=== PATIENT | male | born 1940 | race Caucasian/White ===

== ENCOUNTER 2022-10-17 15:15 | Inpatient (IN) ==
--- NOTE | 2022-10-17 15:54 | Emergency Department Note ---
SOB HPI General Chief Complaint: Shortness of Breath/Dyspnea Stated Complaint: SOB Time Seen by Provider: 10/17/22 15:33 Source: patient Mode of arrival: ambulatory Limitations: no limitations History of Present Illness HPI Narrative: 81-year-old male with history of CAD, ICM with EF 45 to 50%, chronic left bundle branch block, [employer] with BiV pacing, paroxysmal A. fib on chronic anticoagulation, COPD with 2 L oxygen requirement at night, RAFAEL, chronic right hemidiaphragm, hypothyroidism, and BPH presents to the ER from minor care with shortness of breath, weakness, and hypoxia. O2 saturations dipped into the high 70s on room air. Patient states that he started feeling ill on Saturday. This was preceded by his who had been sick for a week prior. He complains of congestion, cough, and general malaise. He has had poor oral intake. He does note he is gained 2 pounds in the last week unintentionally. He does have lower extremity edema and takes Lasix as needed as needed for this. He notes that he does not routinely take it and has not taken any lately. He denies chest pain. Denies nausea or vomiting. Denies abdominal pain, but does complain of some abdominal fullness. He is also had difficulty urinating with minimal output. Related Data Home Medications Medication Instructions Recorded Confirmed losartan 25 mg tablet 25 mg PO QDAY 02/28/16 10/17/22 metoprolol succinate 50 mg 50 mg PO QDAY 08/20/17 10/17/22 tablet,extended release 24 hr omega-3 fatty acids 1,000 mg 2,000 mg PO QDAY 06/23/20 10/17/22 capsule (Fish Oil Concentrate) apixaban 2.5 mg tablet (Eliquis) mg PO 02/05/22 10/17/22 Previous Rx's Medication Instructions Recorded furosemide 40 mg tablet 40 mg PO QAM Edema #30 tabs 12/14/20 Portable Oxygen Concentrator See Rx Instructions .Route 03/14/21 .COMPLEX #1 unit Oxygen See Rx Instructions intranasal QHS 03/21/21 #1 unit tamsulosin 0.4 mg capsule 0.8 mg PO QDAY #90 caps 04/20/22 fluticasone furoate 100 1 inh inhalation Q24H 90 days #180 05/08/22 mcg-vilanterol 25 mcg/dose ea inhalation powder (Breo Ellipta) atorvastatin 40 mg tablet (Lipitor) 40 mg PO .QOD #45 tabs 05/29/22 C-Pap and associated supplies #1 ea 07/04/22 ipratropium 0.5 mg-albuterol 3 mg 3 ml inhalation BID #180 mL 07/11/22 (2.5 mg base)/3 mL nebulization soln levothyroxine 100 mcg tablet 100 mcg PO QDAY #90 tabs 07/31/22 (Synthroid) finasteride 5 mg tablet 5 mg PO QDAY #90 tabs 08/01/22 BiPap Mask Headgear #1 ea 09/21/22 Allergies Allergy/AdvReac Type Severity Reaction Status Date / Time vancomycin Allergy Intermediate Hives, Verified 10/17/22 15:22 itching Review of Systems ROS ROS Narrative: Narrative: All systems ED: reviewed and negative except as stated. [facility] Narrative Patient History Narrative: Narrative: Medical/Surgical/Family History All Active Problems (Updated 10/17/22 @ 19:42 by Carolee Leon PA-C) Community acquired pneumonia (Acute) Acute exacerbation of CHF (congestive heart failure) (Acute) BPH with obstruction/lower urinary tract symptoms (Acute) History of bladder cancer (Acute) Cellulitis of toe of right foot (Acute) History of tobacco use (Chronic) Hypothyroidism (acquired) (Chronic) BPH (benign prostatic hyperplasia) (Chronic) COPD (chronic obstructive pulmonary disease) (Chronic) Hypertension (Chronic) Diaphragmatic paralysis (Chronic) Congestive heart failure (Chronic) Hyperlipidemia (Chronic) Chronic kidney disease, stage III (moderate) (Chronic) RAFAEL (obstructive sleep apnea) (Chronic) Osteoarthritis (Acute) RAFAEL treated with BiPAP (Chronic) Hx of bladder cancer (Acute) Hx of renal calculi (Acute) Medicare annual wellness visit, initial (Acute) Annual physical exam (Acute) Anemia (Acute) Anemia (Acute) Renal stones (Acute) Bladder cancer (Acute) BPH w urinary obs/LUTS (Acute) Elevated PSA (Acute) Bilateral lower extremity edema (Acute) Bladder diverticulum (Acute) Urinary retention (Acute) Elevated PSA (Acute) Hypoxia (Acute) Incomplete bladder emptying (Acute) Acute UTI (Acute) Tinea (Acute) Pre-procedural examination (Acute) Medical History Anemia Anemia Annual physical exam Arthritis Bilateral lower extremity edema Bladder diverticulum BPH (benign prostatic hyperplasia) Chronic kidney disease, stage III (moderate) Congestive heart failure Clinically euvolumic, follows with Cardiology.Dr Cross Continuous positive airway pressure dependent COPD (chronic obstructive pulmonary disease) oxygen 2 L at night, Duonebs 4 times a day Diaphragmatic paralysis Right side, phrnenic nerve paralysis Elevated PSA History of tobacco use Smoked for 30 years, quit 25 years ago. Hyperlipidemia Hypertension Hypothyroidism (acquired) on synthroid 100mcg, tsh wnl, continue same, clinically euthyroid. Hypoxia Medicare annual wellness visit, initial RAFAEL treated with BiPAP Rheumatic fever While in grade school Sleep apnea Tinea Urinary retention Surgical History History of colonoscopy History of elbow surgery History of eye surgery History of knee replacement History of knee surgery Knee scope - x2 History of shoulder surgery History of toe surgery 3 toes straightened History of tonsillectomy History of tonsillectomy Family History Father Family history of malignant neoplasm 2 sons Mother Family history of malignant neoplasm Brother Cerebrovascular accident Other Kidney stone Social History Smoking Status: Former smoker Alcohol Intake Frequency: 0-2 drinks per day Substance Use: does not use Exam Narrative Narrative: General: AOx3, NAD, nontoxic appearing. Pleasant and conversant. HEENT: PERRL, EOMI, normocephalic. Moist mucous membranes. Normal facies and normal dentition. Chest: Symmetric, no pain to palpation Respiratory: Lungs clear to auscultation bilaterally. Super clavicular retractions with breathing. Talking in 2-3 word sentences. Heart: Regular rate and rhythm, BiV paced. No murmurs/clicks/rubs. Abdomen: Obese, non-tender, Non distended Extremities: Warm and well perfused. Trace pitting edema bilaterally. DP 2+ bilaterally. No venous stasis. Neuro: No focal deficits. Cranial nerves II-XII grossly normal. Skin: Warm dry, no rashes or lesions, no cyanosis. Psych: Normal mood and affect Heme/Lymph: No abnormal bruising General Limitations: no limitations Course Course Course Narrative: 81-year-old male presents for acute hypoxia and shortness of breath Reevaluation(s) Reevaluation #1: Basic labs, BnP, troponin, chest x-ray Check influenza and COVID swabs Reevaluation #2: BNP is mildly elevated at 773. CBC without leukocytosis. Creatinine is 1.8 up from 1.4 on 07/17/2022. Chronic anemia stable with an H&H of 12.1/38.2 Chest x-ray shows right hemidiaphragm, cardiomegaly, pulmonary vascular congestion, and mid right basilar density consistent with pneumonia or atelectasis. Influenza and COVID are negative Reevaluation #3: Patient is requiring 3 L to keep his sats above 92%. He is less tachypneic. He received 40 mg of IV Lasix and has only urinated 225 cc. Patient will need admission for ongoing diuresis and antibiotics. Vital Signs Vital signs: Vital Signs Temperature 97.7 F 10/17/22 15:17 Pulse Rate 109 H 10/17/22 15:17 Respiratory Rate 20 10/17/22 15:17 Blood Pressure 154/70 10/17/22 15:17 Pulse Oximetry (%) 79 L 10/17/22 15:17 Oxygen Delivery Method 10/17/22 15:17 Temperature 97.7 F 10/17/22 15:17 Pulse Rate 90 10/17/22 19:02 Respiratory Rate 32 H 10/17/22 19:15 Blood Pressure 131/76 10/17/22 19:02 Pulse Oximetry (%) 91 10/17/22 19:02 Oxygen Delivery Method 10/17/22 18:02 Oxygen Flow Rate (L/min) 3 10/17/22 18:02 [facility] Narrative Medical decision making narrative: Hypoxia CHF exacerbation Right lower lobe pneumonia Renal insufficiency Patient received 1 g IV ceftriaxone and 500 mg of oral azithromycin. He received 400 mg of IV Lasix in the ER. He is still requiring 2 to 3 L to keep his oxygen sats above 90%. Patient would benefit from admission and stabilization and I have reached out to hospitalist for admission. Curb 65 score is 3 severe risk. The patient been accepted for admission. Lab Data Result diagrams: 10/17/22 15:56 Labs: Lab Results 10/17/22 10/17/22 10/17/22 Range/Units 15:55 15:56 15:58 WBC 5.7 (4.5-11.0) K/mcL RBC 4.02 L (4.63-6.08) M/mcL Hgb 12.1 L (13.7-17.5) g/dL Hct 38.2 L (40.1-51.0) % POC Hct 39.0 L (41-55) MCV 95.0 (80.0-100.0) fL MCH 30.1 (26.0-34.0) pg MCHC 31.7 (31.0-36.0) g/dL RDW 12.6 (11.5-14.5) % Plt Count 159 (140-440) K/mcL MPV 11.2 (8.8-12.5) fL Immature Gran % (Auto) 0.5 (0.0-0.5) % Neut % (Auto) 71.1 (38.0-78.0) % Lymph % (Auto) 14.7 L (15.5-49.0) % [place] % (Auto) 12.4 H (1.0-12.0) % Eos % (Auto) 1.0 (0.0-7.0) % Baso % (Auto) 0.3 (0.0-2.0) % Lymph # (Auto) 0.84 L (1.50-4.80) K/mcL [place] # (Auto) 0.71 (0.10-0.90) K/mcL Eos # (Auto) 0.06 (0.00-0.70) K/mcL Baso # (Auto) 0.02 (0.00-0.30) K/mcL Immature Gran # 0.03 (0.00-0.05) K/mcl Absolute Neutrophils 4.07 (1.80-8.00) K/mcL POC Sodium 140 (133-145) POC Potassium 4.2 (3.3-5.1) POC Chloride 99 (96-108) POC Total CO2 32.0 H (22-30) POC BUN 32 H (6-20) POC Creatinine 1.8 H (0.6-1.2) POC Glucose 107 H (70-105) POC WB Ioniz Calcium 1.11 L (1.16-1.32) NT-Pro-B Natriuret Pep 773.9 H (<450.0) pg/mL POC Troponin I (0.00-0.08) 10/17/22 Range/Units 17:43 WBC (4.5-11.0) K/mcL RBC (4.63-6.08) M/mcL Hgb (13.7-17.5) g/dL Hct (40.1-51.0) % POC Hct (41-55) MCV (80.0-100.0) fL MCH (26.0-34.0) pg MCHC (31.0-36.0) g/dL RDW (11.5-14.5) % Plt Count (140-440) K/mcL MPV (8.8-12.5) fL Immature Gran % (Auto) (0.0-0.5) % Neut % (Auto) (38.0-78.0) % Lymph % (Auto) (15.5-49.0) % [place] % (Auto) (1.0-12.0) % Eos % (Auto) (0.0-7.0) % Baso % (Auto) (0.0-2.0) % Lymph # (Auto) (1.50-4.80) K/mcL [place] # (Auto) (0.10-0.90) K/mcL Eos # (Auto) (0.00-0.70) K/mcL Baso # (Auto) (0.00-0.30) K/mcL Immature Gran # (0.00-0.05) K/mcl Absolute Neutrophils (1.80-8.00) K/mcL POC Sodium (133-145) POC Potassium (3.3-5.1) POC Chloride (96-108) POC Total CO2 (22-30) POC BUN (6-20) POC Creatinine (0.6-1.2) POC Glucose (70-105) POC WB Ioniz Calcium (1.16-1.32) NT-Pro-B Natriuret Pep (<450.0) pg/mL POC Troponin I 0.02 (0.00-0.08) ED POC Tests ED POC Tests: ARIE - Influenza A Negative ARIE - Influenza B Negative ARIE - SARS Antigen Negative Discharge Plan Patient/Caregiver Discharge Instructions Pt seen by [employer]PECTOR/PA only: Yes Clinical Impression: Community acquired pneumonia, Acute exacerbation of CHF (congestive heart failure) Patient Disposition: Xfer As Inpt ([facility]) Follow up with: Shan Griffin MD [Primary Care Provider] - Prescriptions: No Action furosemide 40 mg tablet 40 mg PO QAM Qty: 30 0RF Portable Oxygen Concentrator See Rx Instructions .ROUTE .COMPLEX Qty: 1 0RF Rx Instructions: with accessories. Use as directed. Oxygen See Rx Instructions intranasal QHS Qty: 1 11RF Rx Instructions: 2 liters intranasal every day at bedtime; tamsulosin 0.4 mg capsule 0.8 mg PO QDAY Qty: 90 3RF Breo Ellipta 100-25 mcg/dose blister with device 1 inh INHALATION Q24H 90 Days Qty: 180 1RF atorvastatin [Lipitor] 40 mg tablet 40 mg PO .QOD Qty: 45 0RF (DME) C-Pap and associated supplies See Rx Instructions .Route .MEDSUPPLY Qty: 1 0RF Rx Instructions: As directed ipratropium-albuterol 0.5 mg-3 mg(2.5 mg base)/3 mL solution for nebulization 3 ml INHALATION BID Qty: 180 1RF levothyroxine [Synthroid] 100 mcg tablet 100 mcg PO QDAY Qty: 90 1RF finasteride 5 mg tablet 5 mg PO QDAY Qty: 90 2RF omega-3 fatty acids [Fish Oil Concentrate] 1,000 mg capsule 2,000 mg PO QDAY (DME) BiPap Mask Headgear See Rx Instructions .Route .MEDSUPPLY Qty: 1 0RF Rx Instructions: As directed losartan 25 mg tablet 25 mg PO QDAY metoprolol succinate 50 mg tablet extended release 24 hr 50 mg PO QDAY Eliquis 2.5 mg tablet PO Label Comments: [NO ORIGINAL SIG]
--- NOTE | 2022-10-17 15:56 | XRay Report ---
INDICATION: dyspnea TECHNIQUE: AP portable upright chest x-ray COMPARISON: Previous chest x-ray dated 07/10/2011 FINDINGS:Left-sided cardiac pacemaker. Transvenous leads in appropriate position for right atrium and ventricle. There is cardiomegaly. Pulmonary vascularity is prominent with upper lobe redistribution. Appearance is consistent with pulmonary congestion. No focal left lung infiltrate. There is marked elevation of the right hemidiaphragm. This is chronic. Right pleural fluid is not excluded. There is mild right asymmetric infiltrate which may be a benign volume loss. Pneumonia is not excluded. IMPRESSION: 1. Cardiomegaly and probable pulmonary congestion 2. Chronic elevation right hemidiaphragm. Mild right basilar parenchymal density consistent with atelectasis or pneumonia Interpreted and Authenticated by: Dylan Knott 10/17/22
[2022-10-17 16:04] LABS: POC Calcium, Ionized 1.11 (1.16-1.32); POC Creatinine 1.8 (0.6-1.2); POC Potassium 4.2 (3.3-5.1)
[2022-10-17] MEDS ORDERED: FUROSEMIDE 40 MG/4 ML VIAL IV ONE (16:32)
[2022-10-17] MEDS ORDERED: cefTRIAXone 1 GM VIAL IV ONE (16:33)
[2022-10-17 16:44] LABS: Basophils # (Auto) 0.02 K/mcL (0.00-0.30); Basophils % (Auto) 0.3 % (0.0-2.0); Eosinophils # (Auto) 0.06 K/mcL (0.00-0.70); Hematocrit 38.2 % (40.1-51.0); Hemoglobin 12.1 g/dL (13.7-17.5); Lymphocytes # (Auto) 0.84 K/mcL (1.50-4.80); Lymphocytes % (Auto) 14.7 % (15.5-49.0); Mean Corpuscular HGB Conc 31.7 g/dL (31.0-36.0); Mean Platelet Volume 11.2 fL (8.8-12.5); Monocytes # (Auto) 0.71 K/mcL (0.10-0.90); Monocytes % (Auto) 12.4 % (1.0-12.0); Neutrophils % (Auto) 71.1 % (38.0-78.0); Platelet Count 159 K/mcL (140-440); RBC 4.02 M/mcL (4.63-6.08); Red Cell Distribution Width 12.6 % (11.5-14.5); WBC 5.7 K/mcL (4.5-11.0)
[2022-10-17 16:55] LABS: proBNP 773.9 pg/mL (<450.0)
[2022-10-17] MEDS ORDERED: AZITHROMYCIN 250 MG TABLET PO ONE (17:16)
[2022-10-17] MEDS ORDERED: ACETAMINOPHEN 325 MG TABLET PO PRN (19:55)
[2022-10-17] MEDS ORDERED: ONDANSETRON 4 MG/2 ML VIAL IV PRN (19:55)
[2022-10-17] MEDS ORDERED: traZODone HCL 50 MG TABLET PO PRN (19:55)
[2022-10-17] MEDS ORDERED: IPRATROPIUM/ALBUTEROL 3 ML AMPUL.NEB NEB PRN (19:55)
[2022-10-17] MEDS ORDERED: guaiFENesin/DEXTROMETHORPHAN ORAL SOL PO PRN (19:55)
--- NOTE | 2022-10-17 19:58 | Internal Med History&Physical ---
HPI History of Present Illness Patient information: Note initiated : 10/17/22 at 7:51 pm Service Date, if different from initiated Date: [] Patient: Yung Melara 81 y/o M admitted on for Shortness of breath. Chief Complaint: [shortness of breath] Chief complaint: shortness of breath History of present illness: Mr. Melara is a 81 year old M history of congestive heart failure status post AICD placement, COPD, hypothyroidism, BPH, obstructive sleep apnea on BiPAP, essential hypertensions, dyslipidemia, chronic kidney disease stage III, presenting with 6-day history of shortness of breath. He has sick contact, his is sick. Over the past 6 days, he is complaining of progressively worsening shortness of breath, productive cough with clear/white sputum, and respiratory wheezings. He is also commenting of subjective fever and chills. He is also complaining of 3 pounds weight gain over the same period of time. He has dyspnea on exertions with 10 feeds. He has equal focal leg swellings. He is also complaining of general weakness. Negative for orthopnea. He uses BiPAP while sleeping, and PRN oxygen up to 2L/min. Upon arrival to the ED, his oxygen desaturated to the high 70s/low 80s percent on room air. Labs significant for lack of leukocytosis with WBC 5.7. POC creatinine 1.8. proBNP 773. Troponin 0.02. Monique negative. Chest x-ray showing cardiomegaly and possible pulmonary congestions. It also shows chronic elevation the right hemidiaphragm. Mild right basilar parenchymal density consistent with atelectasis or pneumonia. Admission request was called for CHF exacerbations and community acquired pneumonia. Constitutional Constitutional: Present chills, fever(s) and weakness; Absent excessive sweating or fatigue EENT Eyes: Absent blurry vision, change in vision, loss of vision or other visual disturbances Ears: Absent decreased hearing or tinnitus Nose, mouth and throat: Absent abnormal hearing, dry mouth, headache(s), nasal congestion or sore throat Cardiovascular Cardiovascular: Absent chest pain, chest pain at rest, edema, irregular heart rhythm or palpatations Respiratory Respiratory: Present cough, dyspnea, dyspnea on exertion, wheezing and excessive phlegm production Gastrointestinal Gastrointestinal: Absent abdominal pain, constipation, diarrhea, nausea or vomiting Musculoskeletal Musculoskeletal: Absent back pain, deformity, limited range of motion, muscle cramps, muscle weakness or numbness Integumentary Integumentary: Absent lesions, rash or wounds Neurological Neurological: Absent focal weakness, headache(s) or numbness Psychiatric Psychiatric: Absent anxiety, depression or hallucinations PFSH PFSH All Active Problems (Updated 10/17/22 @ 20:00 by Daniele Luciano MD) Stage 1 acute kidney injury (Acute) Community acquired pneumonia (Acute) Acute exacerbation of CHF (congestive heart failure) (Acute) BPH with obstruction/lower urinary tract symptoms (Acute) History of bladder cancer (Acute) Cellulitis of toe of right foot (Acute) History of tobacco use (Chronic) Hypothyroidism (acquired) (Chronic) BPH (benign prostatic hyperplasia) (Chronic) COPD (chronic obstructive pulmonary disease) (Chronic) Hypertension (Chronic) Diaphragmatic paralysis (Chronic) Congestive heart failure (Chronic) Hyperlipidemia (Chronic) Chronic kidney disease, stage III (moderate) (Chronic) RAFAEL (obstructive sleep apnea) (Chronic) Osteoarthritis (Acute) RAFAEL treated with BiPAP (Chronic) Hx of bladder cancer (Acute) Hx of renal calculi (Acute) Medicare annual wellness visit, initial (Acute) Annual physical exam (Acute) Anemia (Acute) Anemia (Acute) Renal stones (Acute) Bladder cancer (Acute) BPH w urinary obs/LUTS (Acute) Elevated PSA (Acute) Bilateral lower extremity edema (Acute) Bladder diverticulum (Acute) Urinary retention (Acute) Elevated PSA (Acute) Hypoxia (Acute) Incomplete bladder emptying (Acute) Acute UTI (Acute) Tinea (Acute) Pre-procedural examination (Acute) Medical History Anemia Anemia Annual physical exam Arthritis Bilateral lower extremity edema Bladder diverticulum BPH (benign prostatic hyperplasia) Chronic kidney disease, stage III (moderate) Congestive heart failure Clinically euvolumic, follows with Cardiology.Dr Cross Continuous positive airway pressure dependent COPD (chronic obstructive pulmonary disease) oxygen 2 L at night, Duonebs 4 times a day Diaphragmatic paralysis Right side, phrnenic nerve paralysis Elevated PSA History of tobacco use Smoked for 30 years, quit 25 years ago. Hyperlipidemia Hypertension Hypothyroidism (acquired) on synthroid 100mcg, tsh wnl, continue same, clinically euthyroid. Hypoxia Medicare annual wellness visit, initial RAFAEL treated with BiPAP Rheumatic fever While in grade school Sleep apnea Tinea Urinary retention Surgical History History of colonoscopy History of elbow surgery History of eye surgery History of knee replacement History of knee surgery Knee scope - x2 History of shoulder surgery History of toe surgery 3 toes straightened History of tonsillectomy History of tonsillectomy Family History Father Family history of malignant neoplasm 2 sons Mother Family history of malignant neoplasm Brother Cerebrovascular accident Other Kidney stone Social History marital status: smoking status: Former smoker quit date: 05/31/90 pack-years: 25 alcohol intake frequency: 0-2 drinks per day substance use type: does not use MEDS/ALLERGIES Home Medications and Allergies Home Medications Medication Instructions Recorded Confirmed Type losartan 25 mg tablet 25 mg PO QDAY 02/28/16 10/17/22 History metoprolol succinate 50 mg 50 mg PO QDAY 08/20/17 10/17/22 History tablet,extended release 24 hr omega-3 fatty acids 1,000 mg 2,000 mg PO QDAY 06/23/20 10/17/22 History capsule (Fish Oil Concentrate) furosemide 40 mg tablet 40 mg PO QAM Edema #30 tabs 12/14/20 10/17/22 Rx Portable Oxygen Concentrator See Rx Instructions .Route 03/14/21 10/17/22 Rx .COMPLEX #1 unit Oxygen See Rx Instructions intranasal QHS 03/21/21 10/17/22 Rx #1 unit apixaban 2.5 mg tablet (Eliquis) mg PO 02/05/22 10/17/22 History tamsulosin 0.4 mg capsule 0.8 mg PO QDAY #90 caps 04/20/22 10/17/22 Rx fluticasone furoate 100 1 inh inhalation Q24H 90 days #180 05/08/22 10/17/22 Rx mcg-vilanterol 25 mcg/dose ea inhalation powder (Breo Ellipta) atorvastatin 40 mg tablet (Lipitor) 40 mg PO .QOD #45 tabs 05/29/22 10/17/22 Rx C-Pap and associated supplies #1 ea 07/04/22 10/17/22 Rx ipratropium 0.5 mg-albuterol 3 mg 3 ml inhalation BID #180 mL 07/11/22 10/17/22 Rx (2.5 mg base)/3 mL nebulization soln levothyroxine 100 mcg tablet 100 mcg PO QDAY #90 tabs 07/31/22 10/17/22 Rx (Synthroid) finasteride 5 mg tablet 5 mg PO QDAY #90 tabs 08/01/22 10/17/22 Rx BiPap Mask Headgear #1 ea 09/21/22 10/17/22 Rx Allergies Allergy/AdvReac Type Severity Reaction Status Date / Time vancomycin Allergy Intermediate Hives, Verified 10/17/22 15:22 itching EXAM Constitutional Vitals: Temp Pulse Resp BP Pulse Ox O2 Del Method O2 Flow Rate 36.5 C 90 32 H 131/76 91 3 10/17/22 15:17 10/17/22 19:02 10/17/22 19:15 10/17/22 19:02 10/17/22 19:02 10/17/22 18:02 10/17/22 18:02 General appearance: cooperative and no acute distress Head Head exam: Present atraumatic and normocephalic Eye Eye exam: Present EOMI and PERRL ENT ENT exam: Present mucous membranes moist, normal exam and normal external ear exam Additional comments: Nasal cannula in place Neck Neck exam: Present normal inspection; Absent lymphadenopathy, tenderness or thyromegaly Respiratory Respiratory exam: Present decreased breath sounds and rhonchi; Absent accessory muscle use, respiratory distress or wheezes Cardiovascular Cardiovascular exam: Present normal rate and rhythm; Absent JVD Additional comments: AICD in place GI/Abdominal GI/Abdominal exam: Present normal bowel sounds and soft; Absent organomegaly or tenderness Rectal Rectal exam: Present deferred Extremities Exam Extremities exam: Present full ROM, normal capillary refill, normal inspection and pedal edema; Absent tenderness Neurological Exam Neurological exam: Present alert, CN II-XII intact and oriented X3; Absent motor sensory deficit Psychiatric Psychiatric exam: Present normal affect and normal mood; Absent anxious or depressed Skin Skin exam: Present dry and intact DATA Data Completed and Pending Labs: Labs from last 24 hours 10/17/22 10/17/22 10/17/22 17:43 15:58 15:56 WBC 5.7 RBC 4.02 L Hgb 12.1 L Hct 38.2 L POC Hct 39.0 L MCV 95.0 MCH 30.1 MCHC 31.7 RDW 12.6 Plt Count 159 MPV 11.2 Immature Gran % (Auto) 0.5 Neut % (Auto) 71.1 Lymph % (Auto) 14.7 L [place] % (Auto) 12.4 H Eos % (Auto) 1.0 Baso % (Auto) 0.3 Lymph # (Auto) 0.84 L [place] # (Auto) 0.71 Eos # (Auto) 0.06 Baso # (Auto) 0.02 Immature Gran # 0.03 Absolute Neutrophils 4.07 POC Sodium 140 POC Potassium 4.2 POC Chloride 99 POC Total CO2 32.0 H POC BUN 32 H POC Creatinine 1.8 H POC Glucose 107 H POC WB Ioniz Calcium 1.11 L NT-Pro-B Natriuret Pep POC Troponin I 0.02 10/17/22 15:55 WBC RBC Hgb Hct POC Hct MCV MCH MCHC RDW Plt Count MPV Immature Gran % (Auto) Neut % (Auto) Lymph % (Auto) [place] % (Auto) Eos % (Auto) Baso % (Auto) Lymph # (Auto) [place] # (Auto) Eos # (Auto) Baso # (Auto) Immature Gran # Absolute Neutrophils POC Sodium POC Potassium POC Chloride POC Total CO2 POC BUN POC Creatinine POC Glucose POC WB Ioniz Calcium NT-Pro-B Natriuret Pep 773.9 H POC Troponin I A/P Assessment and plan (1) Community acquired pneumonia: Status: Acute (2) Acute exacerbation of CHF (congestive heart failure): Status: Acute (3) BPH (benign prostatic hyperplasia): Status: Chronic (4) Hypothyroidism (acquired): Status: Chronic Comment: on synthroid 100mcg, tsh wnl, continue same, clinically euthyroid. (5) COPD (chronic obstructive pulmonary disease): Status: Chronic Comment: oxygen 2 L at night, Duonebs 4 times a day Qualifiers: COPD type: unspecified COPD Qualified Code(s): J44.9 - Chronic obstructive pulmonary disease, unspecified (6) Hypertension: Status: Chronic Qualifiers: Hypertension type: essential hypertension Qualified Code(s): I10 - Essential (primary) hypertension; I10 - Essential (primary) hypertension; I10 - Essential (primary) hypertension (7) Hyperlipidemia: Status: Chronic (8) Chronic kidney disease, stage III (moderate): Status: Chronic (9) Stage 1 acute kidney injury: Status: Acute (10) RAFAEL treated with BiPAP: Status: Chronic Narrative A/P Narrative: Assessment and Plans: 1. Community acquired pneumonia: Inpatient med surg telemetry Serial lactic acid Procalcitonin CEPHEID Blood culture cbc w/ auto diff in the morning to trend WBC Saline lock with diuresis (as part of the treatment of CHF exacerbation) Rocephin Zithromax Supplemental oxygen therapy Physical therapy 2. CHF exacerbation: s/p AICD placement on Eliquis Strict intake and output measurements Daily weigh 2L/day fluid restriction Lasix 40mg IV BID Metoprolol ER Losartan Supplemental oxygen therapy 2D echocardiogram 3. RAFAEL on BiPAP: Continue BiPAP HS while sleeping 4. COPD, stable: Continue bronchodilators from home regimen DuoNEB NEB PRN wheezing/shortness of breath 5. BPH: Flomax Finasteride 6. Hypothyroidism: Continue thyroid replacement therapy 7. Acute on chronic kidney injury: Avoid nephrotoxic agents Saline lock with diuresis (as part of the treatment of CHF exacerbation) CMP in the morning to trend kidney functions 8. Essential hypertension: Lasix 40mg IV BID Metoprolol ER Losartan 9. Hyperlipidemia: Continue statin therapy GI ppx: not currently indicated DVT ppx: Eliquis Code status: Full Prognosis: guarded Disposition: Inpatient med surg tele; PT Time Spent With Patient Time: Total time spent is greater than 50% in coordination of care (as documented) at patient's floor/unit and/or counseling patient: Total time spent with greater than 50% in coordination of care (as documented) at patient's floor/unit and/or counseling patient:: 50 - 70 minutes
[2022-10-17] MEDS ORDERED: cefTRIAXone 1 GM in DEXTROSE 5% IN WATER 50 ML IV SCH (20:00)
[2022-10-17] MEDS ORDERED: ATORVASTATIN 40 MG TABLET PO SCH (21:00)
[2022-10-17] MEDS: cefTRIAXone 1 GM VIAL IV SCH (21:59)
[2022-10-17] MEDS: DOCUSATE SODIUM 100 MG CAPSULE PO SCH (22:09)
[2022-10-17] MEDS: APIXABAN 5 MG TABLET PO SCH (22:10)
[2022-10-17] MEDS: SENNOSIDES 1 TABLET PO SCH (22:10)
[2022-10-17] MEDS: 0.9 % SODIUM CHLORIDE 10 ML SYRINGE IV SCH (22:12)
[2022-10-17] MEDS: Fluticasone Furoate-Vilanterol [Breo Ellipta] 100 INH SCH (22:14)
[2022-10-17] MEDS: IPRATROPIUM/ALBUTEROL 3 ML AMPUL.NEB NEB SCH (23:26)
[2022-10-18] MEDS: 0.9 % SODIUM CHLORIDE 10 ML SYRINGE IV SCH ×3 (05:41→20:35)
[2022-10-18 07:21] LABS: Basophils # (Auto) 0.01 K/mcL (0.00-0.30); Basophils % (Auto) 0.2 % (0.0-2.0); Eosinophils # (Auto) 0.07 K/mcL (0.00-0.70); Eosinophils % (Auto) 1.5 % (0.0-7.0); Hematocrit 34.4 % (40.1-51.0); Lymphocytes # (Auto) 0.84 K/mcL (1.50-4.80); Lymphocytes % (Auto) 18.1 % (15.5-49.0); Mean Cell Volume 96.4 fL (80.0-100.0); Mean Platelet Volume 11.1 fL (8.8-12.5); Monocytes # (Auto) 0.66 K/mcL (0.10-0.90); Monocytes % (Auto) 14.3 % (1.0-12.0); Neutrophils % (Auto) 65.7 % (38.0-78.0); Platelet Count 177 K/mcL (140-440); RBC 3.57 M/mcL (4.63-6.08); Red Cell Distribution Width 12.7 % (11.5-14.5); WBC 4.6 K/mcL (4.5-11.0)
[2022-10-18] MEDS: FUROSEMIDE 40 MG/4 ML VIAL IV SCH ×2 (07:46→15:50)
[2022-10-18 08:03] LABS: ALT/SGPT 17 U/L (<40); AST/SGOT 21 U/L (<40); Albumin 2.8 gm/dL (3.2-5.2); Albumin/Globulin Ratio 0.8 (1.0-2.3); Alkaline Phosphatase 87 U/L (39-117); Bilirubin,Total 0.6 mg/dL (0.1-1.0); Blood Urea Nitrogen 28 mg/dL (8-23); Calcium 8.5 mg/dL (8.6-10.4); Carbon Dioxide 28 mmol/L (22-30); Chloride 100 mmol/L (96-108); Globulin 3.5 gm/dL (2.2-3.7); Glomerular Filtration Rate 42; Glucose 90 mg/dL (70-105)
[2022-10-18] MEDS: IPRATROPIUM/ALBUTEROL 3 ML AMPUL.NEB NEB SCH ×2 (08:20→21:00)
[2022-10-18] MEDS: DOCUSATE SODIUM 100 MG CAPSULE PO SCH ×2 (08:41→20:35)
[2022-10-18] MEDS: FISH OIL 1,000 MG CAPSULE PO SCH (08:42)
[2022-10-18] MEDS: FINASTERIDE 5 MG TABLET PO SCH (08:42)
[2022-10-18] MEDS: TAMSULOSIN 0.4 MG CAPSULE PO SCH (08:42)
[2022-10-18] MEDS: APIXABAN 5 MG TABLET PO SCH ×2 (08:42→20:34)
[2022-10-18] MEDS: LOSARTAN 25 MG TABLET PO SCH (08:42)
[2022-10-18] MEDS: METOPROLOL SUCCINATE 50 MG TAB.XL.24H PO SCH (08:43)
[2022-10-18] MEDS: LEVOTHYROXINE 100 MCG TABLET PO SCH (08:43)
[2022-10-18] MEDS ORDERED: AZITHROMYCIN 250 MG TABLET PO SCH (09:00)
[2022-10-18] MEDS ORDERED: AZITHROMYCIN 500 MG in DEXTROSE 5% IN WATER 250 ML IV SCH (09:00)
--- NOTE | 2022-10-18 09:09 | Internal Med Progress Note ---
SUBJECTIVE Subjective Patient information: Note initiated : 10/18/22 at 9:02 am Service Date, if different from initiated Date: [] Patient: Yung Melara a 81 y/o M admitted on 10/17/22 for Shortness of breath. Chief Complaint: [] Interval history: Mr. Melara is a 81 year old M history of congestive heart failure status post AICD placement, COPD, hypothyroidism, BPH, obstructive sleep apnea on BiPAP, essential hypertensions, dyslipidemia, chronic kidney disease stage III, presenting with 6-day history of shortness of breath. He has sick contact, his is sick. Over the past 6 days, he is complaining of progressively worsening shortness of breath, productive cough with clear/white sputum, and respiratory wheezings. He is also commenting of subjective fever and chills. He is also complaining of 3 pounds weight gain over the same period of time. He has dyspnea on exertions with 10 feeds. He has equal focal leg swellings. He is also complaining of general weakness. Negative for orthopnea. He uses BiPAP while sleeping, and PRN oxygen up to 2L/min. Upon arrival to the ED, his oxygen desaturated to the high 70s/low 80s percent on room air. Labs significant for lack of leukocytosis with WBC 5.7. POC creatinine 1.8. proBNP 773. Troponin 0.02. Monique negative. Chest x-ray showing cardiomegaly and possible pulmonary congestions. It also shows chronic elevation the right hemidiaphragm. Mild right basilar parenchymal density consistent with atelectasis or pneumonia. Admission request was called for CHF exacerbations and community acquired pneumonia. 10/18: Patient is currently on 2 L/min of nasal cannula oxygen which is his baseline. CEPHEID negative for CoVID pneumonia. Blood cultures no growth today. 2D e chocardiogram performed, results pending. Patient is feeling better this morning, improving degree of shortness of breath. He is complaining of productive cough with light yellow sputum. He is complaining of mild respiratory wheezing. He denies any chest pain. He denies any subjective fever, chills, or diaphoresis. Continue to follow-up with echocardiogram result when available. Otherwise c ontinue diuretics, metoprolol extended release, losartan. Continue Rocephin and azithromycin while monitoring blood culture result. Continue supplemental oxygen therapy. Pending physical therapy evaluation and treatment for placement planning. Constitutional Vitals: Vital Signs Temp Pulse Resp BP Pulse Ox O2 Del Method O2 Flow Rate 36.2 C 73 18 113/53 98 2 10/18/22 04:01 10/18/22 08:22 10/18/22 08:22 10/18/22 04:01 10/18/22 08:22 10/18/22 08:22 10/18/22 08:22 Period Temp Pulse Resp BP Sys/Dewey Pulse Ox O2 Del Method O2 Flow Rate Last 24 Hr 36.2 C-36.7 C 73-109 15-55 113-163/53-121 79-98 BiPAP-Room Air 2-4 Intake and Output 10/17/22 10/18/22 10/18/22 19:59 03:59 11:59 Intake Total 750 Output Total 400 425 450 Balance -400 -425 300 Weight 112.491 kg 112.491 kg Intake & Output: Intake & Output 10/17/22 10/18/22 10/18/22 19:59 03:59 11:59 Intake Total 750 Output Total 400 425 450 Balance -400 -425 300 Weight 112.491 kg 112.491 kg Intake: Oral 750 Output: Void Amount 400 425 450 Other: Urine Appearance Clear Clear Clear Urine Color Yellow Yellow Yellow General appearance: average body habitus, cooperative and no acute distress Head Head exam: Present atraumatic and normal inspection Eye Eye exam: Present normal appearance ENT ENT exam: Present mucous membranes moist, normal exam and normal external ear exam Additional comments: Nasal cannula in place Neck Neck exam: Present normal inspection Respiratory Respiratory exam: Present rhonchi Cardiovascular Cardiovascular exam: Present normal rate and rhythm Additional comments: AICD in place GI/Abdominal GI/Abdominal exam: Present normal bowel sounds Extremities Exam Extremities exam: Present pedal edema Back Exam Back exam: Present normal inspection Neurological Exam Neurological exam: Present alert and oriented X3 Skin Skin exam: Present intact and warm OBJ DATA Labs CBC & Chem 7: 10/18/22 05:15 10/18/22 05:15 Labs: Abnormal Lab Results 10/18/22 10/18/22 10/17/22 05:15 05:15 20:07 RBC 3.57 L Hgb 11.0 L Hct 34.4 L POC Hct Lymph % (Auto) [place] % (Auto) 14.3 H Lymph # (Auto) 0.84 L POC Total CO2 POC BUN BUN 28 H Creatinine 1.5 H POC Creatinine POC Glucose Calcium 8.5 L POC WB Ioniz Calcium NT-Pro-B Natriuret Pep Albumin 2.8 L Albumin/Globulin Ratio 0.8 L Procalcitonin 0.31 H 10/17/22 10/17/22 10/17/22 15:58 15:56 15:55 RBC 4.02 L Hgb 12.1 L Hct 38.2 L POC Hct 39.0 L Lymph % (Auto) 14.7 L [place] % (Auto) 12.4 H Lymph # (Auto) 0.84 L POC Total CO2 32.0 H POC BUN 32 H BUN Creatinine POC Creatinine 1.8 H POC Glucose 107 H Calcium POC WB Ioniz Calcium 1.11 L NT-Pro-B Natriuret Pep 773.9 H Albumin Albumin/Globulin Ratio Procalcitonin Meds: Medications Acetaminophen (Acetaminophen 325 Mg Tablet) 650 mg PO Q6HP PRN; Protocol PRN Reason: Per Pain Protocol/Fever > 101 Albuterol/Ipratropium (Ipratropium/Albuterol 3 Ml Ampul.Neb) 3 ml NEB Q4HRT PRN PRN Reason: Wheezing Albuterol/Ipratropium (Ipratropium/Albuterol 3 Ml Ampul.Neb) 3 ml NEB BID [facility] Last Admin: 10/18/22 08:20 Dose: 3 ml Apixaban (Apixaban 5 Mg Tablet) 2.5 mg PO BID [facility] Last Admin: 10/18/22 08:42 Dose: 2.5 mg Atorvastatin Calcium (Atorvastatin 40 Mg Tablet) 40 mg PO Q48H [facility] Last Admin: 10/17/22 22:10 Dose: 40 mg Ceftriaxone Sodium (Ceftriaxone 1 Gm Vial) 1 gm IV Q24H [facility] Last Admin: 10/17/22 21:59 Dose: Not Given Docusate Sodium (Docusate Sodium 100 Mg Capsule) 100 mg PO BID [facility] Last Admin: 10/18/22 08:41 Dose: Not Given Finasteride (Finasteride 5 Mg Tablet) 5 mg PO QDAY [facility] Last Admin: 10/18/22 08:42 Dose: 5 mg Fish Oil (Fish Oil 1,000 Mg Capsule) 2,000 mg PO QDAY [facility] Last Admin: 10/18/22 08:42 Dose: 2,000 mg Furosemide (Furosemide 40 Mg/4 Ml Vial) 40 mg IV BIDD [facility] Last Admin: 10/18/22 07:46 Dose: 40 mg Guaifenesin (Guaifenesin/Dextromethorphan Oral Rhonda) 10 ml PO Q4HP PRN PRN Reason: Cough Azithromycin 500 mg/ Dextrose 250 mls @ 250 mls/hr IV Q24H [facility]; Protocol Stop: 10/19/22 09:59 Last Admin: 10/18/22 08:43 Dose: 250 mls/hr Levothyroxine Sodium (Levothyroxine 100 Mcg Tablet) 100 mcg PO QDAY [facility] Last Admin: 10/18/22 08:43 Dose: 100 mcg Losartan Potassium (Losartan 25 Mg Tablet) 25 mg PO QDAY [facility] Last Admin: 10/18/22 08:42 Dose: 25 mg Metoprolol Succinate (Metoprolol Succinate 50 Mg Tab.Xl.24h) 50 mg PO QDAY [facility] Last Admin: 10/18/22 08:43 Dose: 50 mg Ondansetron HCl (Ondansetron 4 Mg/2 Ml Vial) 4 mg IV Q6HP PRN PRN Reason: Nausea And Vomiting Fluticasone Furoate- Vilanterol [Breo Ellipta] 100 1 dose INH Q24H [facility] Last Admin: 10/17/22 22:14 Dose: Not Given Senna (Sennosides 1 Tablet) 2 tab PO HS [facility] Last Admin: 10/17/22 22:10 Dose: 2 tab Sodium Chloride (0.9 % Sodium Chloride 10 Ml Syringe) 10 ml IV Q8 [facility] Last Admin: 10/18/22 05:41 Dose: 10 ml Tamsulosin HCl (Tamsulosin 0.4 Mg Capsule) 0.8 mg PO QDAY [facility] Last Admin: 10/18/22 08:42 Dose: 0.8 mg Trazodone HCl (Trazodone Hcl 50 Mg Tablet) 25 mg PO HSP PRN PRN Reason: Insomnia A/P Assessment and plan (1) Community acquired pneumonia: Status: Acute (2) Acute exacerbation of CHF (congestive heart failure): Status: Acute (3) BPH (benign prostatic hyperplasia): Status: Chronic (4) Hypothyroidism (acquired): Status: Chronic Comment: on synthroid 100mcg, tsh wnl, continue same, clinically euthyroid. (5) COPD (chronic obstructive pulmonary disease): Status: Chronic Comment: oxygen 2 L at night, Duonebs 4 times a day Qualifiers: COPD type: unspecified COPD Qualified Code(s): J44.9 - Chronic obstructive pulmonary disease, unspecified (6) Hypertension: Status: Chronic Qualifiers: Hypertension type: essential hypertension Qualified Code(s): I10 - Ess ential (primary) hypertension; I10 - Essential (primary) hypertension; I10 - Essential (primary) hypertension (7) Hyperlipidemia: Status: Chronic (8) Chronic kidney disease, stage III (moderate): Status: Chronic (9) Stage 1 acute kidney injury: Status: Acute (10) RAFAEL treated with BiPAP: Status: Chronic Narrative A/P Narrative: Assessment and Plans: 1. Community acquired pneumonia: Inpatient med surg telemetry Serial lactic acid 0.6 Procalcitonin 0.31 CEPHEID negative for CoVID pneumonia Blood culture, no growth to date cbc w/ auto diff in the morning to trend WBC Saline lock with diuresis (as part of the treatment of CHF exacerbation) Rocephin Zithromax Supplemental oxygen therapy Physical therapy evaluation and treatment 2. CHF exacerbation: s/p AICD placement on Eliquis Strict intake and output measurements Daily weigh 2L/day fluid restriction Lasix 40mg IV BID Metoprolol ER Losartan Supplemental oxygen therapy 2D echocardiogram performed, results pending 3. RAFAEL on BiPAP: Continue BiPAP HS while sleeping 4. COPD, stable: Continue bronchodilators from home regimen DuoNEB NEB PRN wheezing/shortness of breath 5. BPH: Flomax Finasteride 6. Hypothyroidism: Continue thyroid replacement therapy 7. Acute on chronic kidney injury: Avoid nephrotoxic agents Saline lock with diuresis (as part of the treatment of CHF exacerbation) CMP in the morning to trend kidney functions 8. Essential hypertension: Lasix 40mg IV BID Metoprolol ER Losartan 9. Hyperlipidemia: Continue statin therapy GI ppx: not currently indicated DVT ppx: Eliquis Code status: Full Prognosis: guarded Disposition: Inpatient med surg tele; PT Time Spent With Patient Time: Total time spent is greater than 50% in coordination of care (as documented) at patient's floor/unit and/or counseling patient: Total time spent with greater than 50% in coordination of care (as documented) at patient's floor/unit and/or counseling patient:: 25 - 35 minutes QUALITY VTE Deep Vein Thrombosis/Pulmonary Embolism Present on Admission: No
[2022-10-18] MEDS: cefTRIAXone 1 GM VIAL IV SCH (20:34)
[2022-10-18] MEDS: SENNOSIDES 1 TABLET PO SCH (20:34)
[2022-10-18] MEDS: Fluticasone Furoate-Vilanterol [Breo Ellipta] 100 INH SCH (20:35)
[2022-10-19] MEDS: 0.9 % SODIUM CHLORIDE 10 ML SYRINGE IV SCH ×2 (05:48→13:39)
[2022-10-19 07:24] LABS: Basophils # (Auto) 0.01 K/mcL (0.00-0.30); Basophils % (Auto) 0.2 % (0.0-2.0); Eosinophils # (Auto) 0.06 K/mcL (0.00-0.70); Hematocrit 39.2 % (40.1-51.0); Hemoglobin 12.2 g/dL (13.7-17.5); Lymphocytes # (Auto) 0.84 K/mcL (1.50-4.80); Lymphocytes % (Auto) 13.8 % (15.5-49.0); Mean Cell Volume 96.8 fL (80.0-100.0); Mean Corpuscular HGB Conc 31.1 g/dL (31.0-36.0); Mean Platelet Volume 11.2 fL (8.8-12.5); Monocytes # (Auto) 0.71 K/mcL (0.10-0.90); Monocytes % (Auto) 11.7 % (1.0-12.0); Neutrophils % (Auto) 72.8 % (38.0-78.0); Platelet Count 184 K/mcL (140-440); RBC 4.05 M/mcL (4.63-6.08); Red Cell Distribution Width 12.4 % (11.5-14.5); WBC 6.1 K/mcL (4.5-11.0)
[2022-10-19] MEDS: FUROSEMIDE 40 MG/4 ML VIAL IV SCH (07:55)
[2022-10-19 07:57] LABS: ALT/SGPT 17 U/L (<40); AST/SGOT 32 U/L (<40); Albumin 2.7 gm/dL (3.2-5.2); Albumin/Globulin Ratio 0.6 (1.0-2.3); Alkaline Phosphatase 94 U/L (39-117); Bilirubin,Total 0.4 mg/dL (0.1-1.0); Blood Urea Nitrogen 33 mg/dL (8-23); Carbon Dioxide 27 mmol/L (22-30); Chloride 98 mmol/L (96-108); Globulin 4.2 gm/dL (2.2-3.7); Glomerular Filtration Rate 36; Glucose 100 mg/dL (70-105)
[2022-10-19] MEDS ORDERED: AZITHROMYCIN 250 MG TABLET PO SCH (09:00)
[2022-10-19] MEDS: IPRATROPIUM/ALBUTEROL 3 ML AMPUL.NEB NEB SCH (09:13)
[2022-10-19] MEDS: DOCUSATE SODIUM 100 MG CAPSULE PO SCH (09:27)
[2022-10-19] MEDS: APIXABAN 5 MG TABLET PO SCH (09:28)
[2022-10-19] MEDS: TAMSULOSIN 0.4 MG CAPSULE PO SCH (09:28)
[2022-10-19] MEDS: LOSARTAN 25 MG TABLET PO SCH (09:28)
[2022-10-19] MEDS: FINASTERIDE 5 MG TABLET PO SCH (09:28)
[2022-10-19] MEDS: FISH OIL 1,000 MG CAPSULE PO SCH (09:28)
[2022-10-19] MEDS: LEVOTHYROXINE 100 MCG TABLET PO SCH (09:29)
[2022-10-19] MEDS: METOPROLOL SUCCINATE 50 MG TAB.XL.24H PO SCH (09:29)
--- NOTE | 2022-10-19 10:47 | Discharge Summary ---
Discharge Provider Provider IMPORTANT FOLLOW-UP INFORMATION FOR PCP: Patient information: Note initiated : 10/19/22 at 10:44 am Service Date, if different from initiated Date: [] Patient: Yung Melara 81 y/o M admitted on 10/17/22 for Shortness of breath. Chief Complaint: [] Date of admission: 10/17/22 19:52 Discharge date: 10/19/22 Primary care physician: Shan Griffin MD Attending physician on admission: Daniele Luciano Consults: 10/17/22 Consult to Physician [CONS] Stat Comment: Consulting Provider: Daniele Luciano Reason For Exam: Physician to Consult Attending physician on discharge: Daniele Luciano COURSE Hospital Course Hospital course: Mr. Melara is a 81 year old M history of congestive heart failure status post AICD placement, COPD, hypothyroidism, BPH, obstructive sleep apnea on BiPAP, essential hypertensions, dyslipidemia, chronic kidney disease stage III, presenting with 6-day history of shortness of breath. He has sick contact, his is sick. Over the past 6 days, he is complaining of progressively worsening shortness of breath, productive cough with clear/white sputum, and respiratory wheezings. He is also commenting of subjective fever and chills. He is also complaining of 3 pounds weight gain over the same period of time. He has dyspnea on exertions with 10 feeds. He has equal focal leg swellings. He is also complaining of general weakness. Negative for orthopnea. He uses BiPAP while sleeping, and PRN oxygen up to 2L/min. Upon arrival to the ED, his oxygen desaturated to the high 70s/low 80s percent on room air. Labs significant for lack of leukocytosis with WBC 5.7. POC creatinine 1.8. proBNP 773. Troponin 0.02. Monique negative. Chest x-ray showing cardiomegaly and pos sible pulmonary congestions. It also shows chronic elevation the right hemidiaphragm. Mild right basilar parenchymal density consistent with atelectasis or pneumonia. Admission request was called for CHF exacerbations and community acquired pneumonia. 10/18: Patient is currently on 2 L/min of nasal cannula oxygen which is his baseline. CEPHEID negative for CoVID pneumonia. Blood cultures no growth today. 2D echocardiogram performed, results pending. Patient is feeling better this morning, improving degree of shortness of breath. He is complaining of productive cough with light yellow sputum. He is complaining of mild respiratory wheezing. He denies any chest pain. He denies any subjective fever, chills, or diaphoresis. Continue to follow-up with echocardiogram result when available. Otherwise continue diuretics, metoprolol extended release, losartan. Continue Rocephin and azithromycin while monitoring blood culture result. Continue supplemental oxygen therapy. Pending physical therapy evaluation and treatment for placement planning. 10/19: Reached clinical stability, decision made to discharge patient home with Rx sent to pharmacy. 1 week PCP follow up appointment made for him. All questions were answered prior to patient being physically discharged. Discharge diagnosis: Pneumonia, CHF exacerbation Time Spent with Patient Time attestation: Total time spent providing and/or coordinating discharge services: Time spent: Less than 30 minutes EXAM Constitutional Vitals: Temp Pulse Resp BP Pulse Ox O2 Del Method O2 Flow Rate 36.1 C L 80 20 138/72 100 3 10/19/22 07:45 10/19/22 09:18 10/19/22 09:18 10/19/22 09:07 10/19/22 09:18 10/19/22 09:18 10/19/22 09:18 General appearance: cooperative and no acute distress Head Head exam: Present atraumatic and normocephalic Eye Eye exam: Present EOMI and PERRL ENT ENT exam: Present mucous membranes moist, normal exam and normal external ear exam Additional comments: Oxygen mask in place Neck Neck exam: Present normal inspection; Absent lymphadenopathy, tenderness or t hyromegaly Respiratory Respiratory exam: Present decreased breath sounds and rhonchi; Absent accessory muscle use, respiratory distress or wheezes Cardiovascular Cardiovascular exam: Present normal rate and rhythm; Absent JVD GI/Abdominal GI/Abdominal exam: Present normal bowel sounds and soft; Absent organomegaly or tenderness Rectal Rectal exam: Present deferred Extremities Exam Extremities exam: Present full ROM, normal capillary refill, normal inspection and pedal edema; Absent tenderness Neurological Exam Neurological exam: Present alert, CN II-XII intact and oriented X3; Absent motor sensory deficit Psychiatric Psychiatric exam: Present normal affect and normal mood; Absent anxious or depressed Skin Skin exam: Present dry and intact Discharge Data Data Completed and Pending Labs on day of discharge: Labs from last 24 hours 10/19/22 10/19/22 05:18 05:18 WBC 6.1 RBC 4.05 L Hgb 12.2 L Hct 39.2 L MCV 96.8 MCH 30.1 MCHC 31.1 RDW 12.4 Plt Count 184 MPV 11.2 Immature Gran % (Auto) 0.5 Neut % (Auto) 72.8 Lymph % (Auto) 13.8 L [place] % (Auto) 11.7 Eos % (Auto) 1.0 Baso % (Auto) 0.2 Lymph # (Auto) 0.84 L [place] # (Auto) 0.71 Eos # (Auto) 0.06 Baso # (Auto) 0.01 Immature Gran # 0.03 Absolute Neutrophils 4.43 Sodium 137 Potassium 5.0 Chloride 98 Carbon Dioxide 27 Anion Gap 12.0 BUN 33 H Creatinine 1.7 H GFR Calculation 36 Glucose 100 Calcium 9.0 Total Bilirubin 0.4 AST 32 ALT 17 Alkaline Phosphatase 94 Total Protein 6.9 Albumin 2.7 L Globulin 4.2 H Albumin/Globulin Ratio 0.6 L Preliminary micro results at discharge 10/17/22 20:08 Blood Culture - Preliminary Blood Gram positive cocci 10/17/22 20:10 Blood Culture - Preliminary Blood Discharge Plan Patient/Caregiver Discharge Instructions Activity: increase activity as tolerated Diet: Regular Diet Prescriptions: New dextromethorphan-guaifenesin [Diabetic Tussin DM] 10-100 mg/5 mL Liquid 10 ml PO Q4HP PRN (Reason: Cough) Qty: 500 0RF amoxicillin-pot clavulanate [Augmentin] 500-125 mg tablet 1 tab PO BID Qty: 14 0RF Continued Portable Oxygen Concentrator See Rx Instructions .ROUTE .COMPLEX Qty: 1 0RF Rx Instructions: with accessories. Use as directed. Oxygen See Rx Instructions intranasal QHS Qty: 1 11RF Rx Instructions: 2 liters intranasal every day at bedtime; tamsulosin 0.4 mg capsule 0.8 mg PO QDAY Qty: 90 3RF Breo Ellipta 100-25 mcg/dose blister with device 1 inh INHALATION Q24H 90 Days Qty: 180 1RF (DME) C-Pap and associated supplies See Rx Instructions .Route .MEDSUPPLY Qty: 1 0RF Rx Instructions: As directed ipratropium-albuterol 0.5 mg-3 mg(2.5 mg base)/3 mL solution for nebulization 3 ml INHALATION BID Qty: 180 1RF levothyroxine [Synthroid] 100 mcg tablet 100 mcg PO QDAY Qty: 90 1RF finasteride 5 mg tablet 5 mg PO QDAY Qty: 90 2RF omega-3 fatty acids [Fish Oil Concentrate] 1,000 mg capsule 2,000 mg PO QDAY (DME) BiPap Mask Headgear See Rx Instructions .Route .MEDSUPPLY Qty: 1 0RF Rx Instructions: As directed losartan 25 mg tablet 25 mg PO QDAY metoprolol succinate 50 mg tablet extended release 24 hr 50 mg PO QDAY atorvastatin [Lipitor] 40 mg tablet 40 mg PO .QOHS Eliquis 2.5 mg tablet 2.5 mg PO BID Label Comments: [NO ORIGINAL SIG] Changed furosemide 40 mg tablet 20 mg PO BID Qty: 30 0RF Follow Up Plan Follow up with: Shan Griffin MD [Primary Care Provider] - Patient Disposition: Home, Self-Care Rehab Potential: Good I certify that the patient requires SNF services: No Overall status at discharge: patient is progressing back to baseline Discharge Orders: Discharge Order (Routine); Ordered 10/19/22 Ordered By: Daniele BALL VTE Deep Vein Thrombosis/Pulmonary Embolism Present on Admission: No
[2022-10-19] MEDS ORDERED: FUROSEMIDE 20 MG TABLET PO SCH (16:00)
== END 2022-10-19 14:00 | disposition home or self-care (01) | DRG 194 ==
LOC: ED 15:15 → ICU 19:52
PROVIDERS: ADMIT Internal Medicine; ATTEND Internal Medicine